=== PATIENT | female | born 1950 | race Caucasian/White ===

== ENCOUNTER → 2017-09-01 | Outpatient (CLI) | payer MEDICARE, OTHER ==
[~2017-09-01] MED LIST: AMLO5TAB2 PO; ASPI-496 PO; B&C/1TAB3 PO; CALC500T93 PO; CHLO25TA PO; CHOL2000 PO; CLOP75TA PO; FLUT9.9S NAS; GLUC1TAB27 PO; IRBE150T25 PO; IRBE75TA10 PO; ISOS30TA8 PO; Iron PO; LEVO200T PO; LUTE1CAP PO; MAGN400C PO; METO50TA4 PO; NIAC500T9 PO; NOVOLOG INSULIN PUMP SQ-INSULIN; OMEG1CAP2 PO; SIMV40TA3 PO; UBID100C24 PO; VITA150T PO; VITA15LO2 PO; [UNRECOGNIZED DRUG - SUPPLY]; [UNRECOGNIZED DRUG - SUPPLY] SQ-INSULIN
[2017-09-01 11:26] LABS: BASOPHILS # (AUTO) 0.05 x10^3/uL (0-0.1); BASOPHILS % (AUTO) 1 % (0-1); EOSINOPHILS # (AUTO) 0.13 x10^3/uL (0-0.4); EOSINOPHILS % (AUTO) 1 % (1-7); LYMPHOCYTES # (AUTO) 1.66 x10^3/uL (1-3.4); LYMPHOCYTES % (AUTO) 15 % (22-44); MD NO; MEAN CORPUSCULAR HEMOGLOBIN 32.2 pg (27.0-34.8); MEAN CORPUSCULAR HGB CONC 33.4 g/dL (32.4-35.8); MEAN CORPUSCULAR VOLUME 96.3 fL (80-100); MEAN PLATELET VOLUME 8.6 fL (7.4-10.4); MONOCYTES # (AUTO) 0.49 x10^3/uL (0.2-0.8); MONOCYTES % (AUTO) 5 % (2-9); NEUTROPHILS # (AUTO) 8.44 x10^3/uL (1.8-6.8); NEUTROPHILS % (AUTO) 78 % (42-75); PLATELET COUNT 241 x10^3/uL (130-400); RED BLOOD COUNT 3.56 x10^6/uL (3.82-5.3); RED CELL DISTRIBUTION WIDTH 12.6 % (9.6-15.2)
[2017-09-01 11:27] LABS: MICROSCOPIC NOT IND
[2017-09-01 11:29] LABS: CULTURE INDICATED? NO
[2017-09-01 11:34] LABS: ALANINE AMINOTRANSFERASE 26 U/L (12-78); ALBUMIN 3.7 g/dL (3.4-5.0); ANION GAP 9 mmol/L (5-15); CALCIUM 8.7 mg/dL (8.5-10.1); CHLORIDE 102 mmol/L (98-107); CREATININE 1.96 mg/dL (0.55-1.02)
[2017-09-01 11:35] LABS: INTERNATIONAL NORMALIZED RATIO 1.03 (0.93-1.1); PROTHROMBIN TIME 10.7 Seconds (9.6-11.5)
[2017-09-01 11:36] LABS: ALKALINE PHOSPHATASE 76 U/L (45-117); BILIRUBIN,TOTAL 0.5 mg/dL (0.2-1.0); TOTAL PROTEIN 7.5 g/dL (6.4-8.2)
[2017-09-01 12:07] LABS: HEMOGLOBIN A1C 8.2 % (4.2-6.3)
== END ==
LOC: STAR 09:49
PROVIDERS: ATTEND Neurological Surgery
DX: Z01.818 Encounter for other preprocedural examination (principal); I25.10 Atherosclerotic heart disease of native coronary artery without angina pectoris; M48.061 Spinal stenosis, lumbar region without neurogenic claudication
CPT/HCPCS: 36415; 71046; 80053; 81003; 83036; 85025; 85610; 85730; 93005

== ENCOUNTER 2017-09-14 10:26 | Observation (INO) | payer MEDICARE, OTHER ==
[~2017-09-14] VITALS: Ht 160 cm; Wt 89.7 kg
[2017-09-14] MEDS ORDERED: LACTATED RINGERS 1,000 ML IV SCH (11:07)
[2017-09-14 11:26] VITALS: BP 151/70
[2017-09-14] MEDS ORDERED: ACET-1600 PO (11:29)
[2017-09-14] MEDS ORDERED: SODIUM CHLORIDE 0.9% 1,000 ML IV SCH (11:38)
[2017-09-14 11:52] LABS: INTERNATIONAL NORMALIZED RATIO 1.04 (0.93-1.1); PROTHROMBIN TIME 10.8 Seconds (9.6-11.5)
[2017-09-14] MEDS ORDERED: THROMBIN 5,000 UNIT VIAL TP ONE (12:04)
[2017-09-14] MEDS ORDERED: BUPIVACAINE/PF-EPI 0.5% 1:200K ONE (12:04)
[2017-09-14] MEDS ORDERED: BACITRACIN 50,000 UNIT ONE (12:04)
[2017-09-14] MEDS ORDERED: ONDANSETRON ODT 8 MG PO ONE (13:00)
[2017-09-14] MEDS ORDERED: GABAPENTIN 300 MG CAPSULE PO ONE (13:00)
[2017-09-14] MEDS ORDERED: ACETAMINOPHEN 500 MG TABLET PO ONE (13:00)
[2017-09-14] MEDS ORDERED: FENTANYL PF 100 MCG/2ML ONE (14:45)
[2017-09-14] MEDS ORDERED: MIDAZOLAM 1 MG/ML, 2ML ONE (14:45)
[2017-09-14] MEDS ORDERED: DEXAMETHASONE 4 MG/ML, 1ML ONE (14:46)
[2017-09-14] MEDS ORDERED: PROPOFOL 10 MG/ML, 20ML ONE (14:46)
[2017-09-14] MEDS ORDERED: CEFAZOLIN 1,000 MG ONE (14:46)
[2017-09-14] MEDS ORDERED: PHENYLEPHRINE 10 MG/ML ONE (15:25)
[2017-09-14] MEDS ORDERED: EPINEPHRINE 1 MG/ML, 1ML ONE (15:53)
[2017-09-14] MEDS ORDERED: BUPIVACAINE/PF 0.5% ONE ×2 (15:53→19:12)
[2017-09-14] MEDS ORDERED: DIAZEPAM 5 MG/ML, 2ML IVPush PRN (16:00)
[2017-09-14] MEDS ORDERED: FENTANYL PF 100 MCG/2ML IV PRN (16:00)
[2017-09-14] MEDS ORDERED: hydrALAzine 20 MG/ML, 1ML IV PRN (16:00)
[2017-09-14] MEDS ORDERED: PROMETHAZINE 25 MG/ML, 1ML IV PRN (16:00)
[2017-09-14] MEDS ORDERED: EPHEDRINE 50 MG/ML, 1ML IM PRN (16:00)
[2017-09-14] MEDS ORDERED: MIDAZOLAM 1 MG/ML, 2ML IV PRN (16:00)
[2017-09-14] MEDS ORDERED: LABETALOL 5MG/ML, 20ML IV PRN (16:00)
[2017-09-14] MEDS ORDERED: SCOPOLAMINE PATCH, 1.5MG PATCH.TD72 TD PRN (16:00)
[2017-09-14] MEDS ORDERED: MEPERIDINE/PF 25MG/0.5ML IVPush PRN (16:00)
[2017-09-14] MEDS ORDERED: MORPHINE SULFATE 4 MG/ML, 1ML IVPush PRN ×2 (16:00→17:00)
[2017-09-14] MEDS ORDERED: OXYcodone 5 MG/5 ML ORAL.SOL UDC PO PRN (16:00)
[2017-09-14] MEDS ORDERED: ALBUTEROL/IPRATROPIUM 2.5MG/0.5MG, 3 ML NPPB PRN (16:00)
[2017-09-14] MEDS ORDERED: SUCCINYLCHOLINE 20 MG/ML, 10ML ONE (16:38)
[2017-09-14] MEDS ORDERED: PHARMACY MAY ADJ FOR RENAL FX MC PRN (17:00)
[2017-09-14] MEDS ORDERED: DIPHENHYDRAMINE 50 MG/ML, 1ML IVPush PRN (17:00)
[2017-09-14] MEDS ORDERED: BISACODYL 10 MG SUPP PR PRN (17:00)
[2017-09-14] MEDS ORDERED: PROMETHAZINE 25 MG/ML, 1ML IM PRN (17:00)
[2017-09-14] MEDS ORDERED: ONDANSETRON 2MG/ML, 2ML IVPush PRN (17:00)
[2017-09-14] MEDS ORDERED: TIZANIDINE 2MG TABLET PO PRN (17:00)
[2017-09-14] MEDS ORDERED: MAGNESIUM HYDROXIDE 8%, 30ML UDC PO PRN (17:00)
[2017-09-14] MEDS ORDERED: HYDROmorphone PCA 30 MG/30 ML IV PRN (17:00)
[2017-09-14] MEDS ORDERED: hydrALAzine 20 MG/ML, 1ML ONE (17:16)
[2017-09-14 19:00] VITALS: BP 90/37
[2017-09-14] MEDS: NS + 20MEQ KCL 1,000 ML IV SCH (19:57)
[2017-09-14] MEDS: SODIUM CHLORIDE FLUSH 10ML SYR IVF SCH (21:00)
[2017-09-14] MEDS: SIMVASTATIN 40 MG TABLET PO SCH (21:19)
[2017-09-14] MEDS: METOPROLOL SUCCINATE 50 MG TAB.ER.24H PO SCH (21:19)
[2017-09-14] MEDS: CEFAZOLIN PMX 1GM/50ML 50 ML IVPB SCH (23:50)
[2017-09-14 23:52] VITALS: BP 111/41
[2017-09-15] MEDS ORDERED: ONDANSETRON ODT 4 MG PO PRN (03:30)
[2017-09-15 03:42] VITALS: BP 131/53
[2017-09-15] MEDS: LEVOTHYROXINE 200 MCG TABLET PO SCH (06:23)
[2017-09-15] MEDS: NS + 20MEQ KCL 1,000 ML IV SCH ×2 (07:20→16:00)
[2017-09-15] MEDS: SENNA/DOCUSATE TABLET PO SCH (07:52)
[2017-09-15] MEDS: CEFAZOLIN PMX 1GM/50ML 50 ML IVPB SCH ×2 (07:52→09:23)
[2017-09-15] MEDS: IRBESARTAN 150 MG TABLET PO SCH (07:53)
[2017-09-15] MEDS: METOPROLOL SUCCINATE 50 MG TAB.ER.24H PO SCH ×2 (07:53→21:28)
[2017-09-15] MEDS: ISOSORBIDE MONONITRATE ER 30 MG TABLET PO SCH (07:53)
[2017-09-15] MEDS: SODIUM CHLORIDE FLUSH 10ML SYR IVF SCH ×2 (07:58→21:00)
[2017-09-15] MEDS: CHLORTHALIDONE 25 MG TABLET PO SCH (07:58)
[2017-09-15 10:30] VITALS: BP 115/48
[2017-09-15 14:42] VITALS: BP 115/43
[2017-09-15] MEDS: HYDROcodone/APAP 10/325 MG TABLET PO PRN (19:05)
[2017-09-15 19:54] VITALS: BP 113/46
[2017-09-15] MEDS: SIMVASTATIN 40 MG TABLET PO SCH (21:27)
[2017-09-16] MEDS: HYDROcodone/APAP 10/325 MG TABLET PO PRN (01:10)
[2017-09-16] MEDS: NS + 20MEQ KCL 1,000 ML IV SCH (01:11)
[2017-09-16 01:18] VITALS: BP 109/37
[2017-09-16] MEDS: LEVOTHYROXINE 200 MCG TABLET PO SCH (05:40)
[2017-09-16] MEDS: SODIUM CHLORIDE FLUSH 10ML SYR IVF SCH (09:00)
[2017-09-16 09:23] VITALS: BP 111/64
[2017-09-16] MEDS: IRBESARTAN 150 MG TABLET PO SCH (09:33)
[2017-09-16] MEDS: SENNA/DOCUSATE TABLET PO SCH (09:33)
[2017-09-16] MEDS: ISOSORBIDE MONONITRATE ER 30 MG TABLET PO SCH (09:34)
[2017-09-16] MEDS: METOPROLOL SUCCINATE 50 MG TAB.ER.24H PO SCH (09:34)
[2017-09-16] MEDS: CHLORTHALIDONE 25 MG TABLET PO SCH (09:34)
[2017-09-16] MEDS ORDERED: HYDR-3307 PO (11:29)
[2017-09-16] MEDS ORDERED: TIZA2CAP2 PO (11:30)
== END 2017-09-16 12:18 | disposition home or self-care (01) ==
LOC: OUT 10:26 → ORIP 16:52 → 4NOR 18:37 → DCLOUNGE 09-16 11:36
PROVIDERS: ADMIT Neurological Surgery; ATTEND Neurological Surgery
DX: M48.062 Spinal stenosis, lumbar region with neurogenic claudication (principal); M46.90 Unspecified inflammatory spondylopathy, site unspecified; I10 Essential (primary) hypertension; E11.9 Type 2 diabetes mellitus without complications; E78.00 Pure hypercholesterolemia, unspecified; D64.9 Anemia, unspecified
CPT/HCPCS: 63047; 63048; 72100; 82962; 85610; 85730; 96365; 96372; 96375; 97162; 97166; 97530; G0378; J0171; J0330; J0690; J1100; J2250; J2270; J2370; J2550; J2704; J3010; J3480; J3490; J7030; Q0162

== ENCOUNTER → 2019-06-08 | Outpatient (CLI) | payer MEDICARE, OTHER ==
[~2019-06-08] MED LIST changes: +ACET-1600 PO; +AMLO-150 PO; -AMLO5TAB2 PO; +HYDR-36 PO; -IRBE150T25 PO; +IRBE150T9 PO; -IRBE75TA10 PO; +IRBE75TA6 PO; +REGADENOSON 0.4 MG/5 ML SYRINGE ONE; +SIMV40TA20 PO; -SIMV40TA3 PO; +TIZA2CAP2 PO
== END | disposition home or self-care (01) ==
LOC: CFH 07:43
PROVIDERS: ATTEND Internal Medicine Cardiovascular Disease
DX: I25.9 Chronic ischemic heart disease, unspecified (principal)
CPT/HCPCS: 78452; 93017; A9502; J2785

== ENCOUNTER 2019-06-26 09:17 | Day surgery (SDC) | payer MEDICARE, OTHER ==
[2019-06-23 10:55] VITALS: BP 153/63
[2019-06-23 11:11] LABS: BASOPHILS # (AUTO) 0.02 x10^3/uL (0-0.1); BASOPHILS % (AUTO) 0 % (0-1); EOSINOPHILS # (AUTO) 0.32 x10^3/uL (0-0.4); EOSINOPHILS % (AUTO) 4 % (1-7); LYMPHOCYTES # (AUTO) 1.06 x10^3/uL (1-3.4); LYMPHOCYTES % (AUTO) 12 % (22-44); MD NO; MEAN CORPUSCULAR HGB CONC 33.6 g/dL (32.4-35.8); MEAN CORPUSCULAR VOLUME 95.3 fL (80-100); MEAN PLATELET VOLUME 8.9 fL (7.4-10.4); MONOCYTES # (AUTO) 0.62 x10^3/uL (0.2-0.8); MONOCYTES % (AUTO) 7 % (2-9); NEUTROPHILS # (AUTO) 6.67 x10^3/uL (1.8-6.8); NEUTROPHILS % (AUTO) 77 % (42-75); PLATELET COUNT 245 x10^3/uL (130-400); RED BLOOD COUNT 3.23 x10^6/uL (3.82-5.3); RED CELL DISTRIBUTION WIDTH 12.6 % (9.6-15.2)
[2019-06-23 11:20] LABS: ANION GAP 4 mmol/L (5-15); CALCIUM 9.1 mg/dL (8.5-10.1); CHLORIDE 110 mmol/L (98-107); CREATININE 1.63 mg/dL (0.55-1.02)
[~2019-06-26] VITALS: Ht 160 cm; Wt 81.4 kg
[~2019-06-26 09:17] MED LIST changes: +CLON0.1T22 PO; +LATA2.5D3 EACHEYE; -REGADENOSON 0.4 MG/5 ML SYRINGE ONE
[2019-06-26] MEDS ORDERED: FENTANYL PF 100 MCG/2ML ONE (12:02)
[2019-06-26] MEDS ORDERED: VERAPAMIL 2.5 MG/ML, 2ML ONE (12:02)
[2019-06-26] MEDS ORDERED: MIDAZOLAM 1 MG/ML, 5ML ONE (12:02)
[2019-06-26] MEDS ORDERED: TICAGRELOR 90 MG TABLET ONE (12:02)
[2019-06-26] MEDS ORDERED: LIDOCAINE-MPF 1%, 5ML ONE (12:03)
[2019-06-26] MEDS ORDERED: HEPARIN 1,000 UNITS/ML, 10ML ONE (12:03)
[2019-06-26] MEDS ORDERED: BIVALIRUDIN 250 MG ONE (12:03)
[2019-06-26] MEDS ORDERED: SODIUM CHLORIDE 0.9% 1,000 ML IV SCH (13:59)
== END 2019-06-26 15:47 | disposition home or self-care (01) ==
LOC: CACL 09:17
PROVIDERS: ATTEND Internal Medicine Cardiovascular Disease
DX: R07.89 Other chest pain (principal); I25.10 Atherosclerotic heart disease of native coronary artery without angina pectoris; I25.82 Chronic total occlusion of coronary artery; E11.9 Type 2 diabetes mellitus without complications; I10 Essential (primary) hypertension; E78.2 Mixed hyperlipidemia; Z79.4 Long term (current) use of insulin; Z79.82 Long term (current) use of aspirin; Z79.02 Long term (current) use of antithrombotics/antiplatelets; Z79.890 Hormone replacement therapy; Z79.899 Other long term (current) drug therapy; Z82.49 Family history of ischemic heart disease and other diseases of the circulatory system
CPT/HCPCS: 36415; 80048; 85025; 93459; 99156; 99157; C1769; C1894; J1644; J2250; J3010; Q9967; J0583

== ENCOUNTER → 2019-12-25 | Outpatient (CLI) | payer MEDICARE, OTHER ==
[~2019-12-25] MED LIST changes: +HYDR-3246 PO; -HYDR-36 PO
== END | disposition home or self-care (01) ==
LOC: CFH 12:19
PROVIDERS: ATTEND Internal Medicine
DX: R06.00 Dyspnea, unspecified (principal)
CPT/HCPCS: 71250

== ENCOUNTER 2020-09-12 09:50 | Outpatient (CLI) | payer MEDICARE, OTHER ==
[~2020-09-12 09:50] MED LIST changes: -HYDR-3246 PO; +HYDR-3248 PO; -LATA2.5D3 EACHEYE; +LATA2.5D4 EACHEYE
[2020-09-12 12:40] LABS: ALBUMIN 3.2 g/dL (3.4-5.0); ANION GAP 6 mmol/L (5-15); CALCIUM 9.1 mg/dL (8.5-10.1); CHLORIDE 109 mmol/L (98-107)
[2020-09-12 12:44] LABS: ALANINE AMINOTRANSFERASE 28 U/L (12-78); ALKALINE PHOSPHATASE 138 U/L (45-117); BILIRUBIN,TOTAL 0.6 mg/dL (0.2-1.0); CREATININE 1.76 mg/dL (0.55-1.02); TOTAL PROTEIN 6.9 g/dL (6.4-8.2)
[2020-09-12] MEDS ORDERED: GABA300C PO (15:14)
[2020-09-12] MEDS ORDERED: CALC-39 PO (15:14)
[2020-09-12] MEDS ORDERED: CIDE600C PO (15:14)
== END 2020-09-12 23:59 | disposition home or self-care (01) ==
LOC: STAR 09:50
PROVIDERS: ATTEND Orthopaedic Surgery
DX: Z01.818 Encounter for other preprocedural examination (principal); Z20.822 Contact with and (suspected) exposure to COVID-19
CPT/HCPCS: 36415; 80053; 93005; U0003; U0005